=== PATIENT | male | born 1990 | race Caucasian/White ===

== ENCOUNTER 2020-05-05 01:51 | Emergency (ER) | payer OTHER ==
[~2020-05-05] VITALS: Ht 180.3 cm; Wt 102.1 kg
[~2020-05-05 01:51] MED LIST: ALBU90OI INH; CEPH500 PO; Cyclobenzaprine5 MG PO; DOXY100 PO; Flonase 0.05% N16 GM; GUAI100SY; IBUP600 PO; IBUP800 PO; Mucinex600 MG PO; Naprosyn500 MG PO; Norco 5-325 Ta1 EACH PO; PENVK500 PO; PROCODE120 PO; Prednisone20 MG PO; TRAM50 PO; Vibramycin100 MG PO; Zofran Odt4 MG SL; Zovirax400 MG PO
== END 2020-05-05 04:00 | disposition home or self-care (01) ==
LOC: ER 01:51
DX: S61.211A Laceration without foreign body of left index finger without damage to nail, initial encounter (principal); Z87.442 Personal history of urinary calculi; Z87.891 Personal history of nicotine dependence; Z23 Encounter for immunization; W26.9XXA Contact with unspecified sharp object(s), initial encounter; Y92.89 Other specified places as the place of occurrence of the external cause; Y99.0 Civilian activity done for income or pay
CPT/HCPCS: 12001; 73120; 90471; 90714; 99283-25

== ENCOUNTER 2024-03-08 08:04 | Emergency (ER) | payer OTHER ==
[~2024-03-08] VITALS: Ht 180.3 cm; Wt 115.7 kg
[2024-03-08 08:14] VITALS: BP 165/88
[2024-03-08] MEDS ORDERED: Robaxin750 MG PO (08:30)
== END 2024-03-08 08:34 | disposition home or self-care (01) ==
LOC: ER 08:04
DX: S16.1XXA Strain of muscle, fascia and tendon at neck level, initial encounter (principal); G44.309 Post-traumatic headache, unspecified, not intractable; W01.0XXA Fall on same level from slipping, tripping and stumbling without subsequent striking against object, initial encounter; I11.0 Hypertensive heart disease with heart failure; I50.9 Heart failure, unspecified; Z87.891 Personal history of nicotine dependence
CPT/HCPCS: 99283

== ENCOUNTER 2024-04-02 13:55 | Emergency (ER) | payer OTHER ==
[~2024-04-02] VITALS: Ht 180.3 cm; Wt 115.7 kg
[~2024-04-02 13:55] MED LIST changes: +Robaxin750 MG PO
[2024-04-02] MEDS ORDERED: NS 1,000 ML IV SCH (19:40)
[2024-04-02] MEDS ORDERED: Ketorolac Tromethamine 15mg Vial IV ONE (19:40)
[2024-04-02] MEDS ORDERED: Ondansetron HCl 2 MG / ML 2ML Vial IV ONE (19:40)
[2024-04-02 19:54] LABS: BASOPHILS ABSOLUTE AUTO 0.04 K/mm3 (0.00-0.23); BASOPHILS PERCENT AUTO 1 % (0-2); EOSINOPHILS ABSOLUTE AUTO 0.05 K/mm3 (0.00-0.68); EOSINOPHILS PERCENT AUTO 1 % (0-6); Hematocrit 49.3 % (37.0-53.0); Hemoglobin 16.1 g/dL (13.5-17.5); IMMATURE GRAN ABSOLUTE AUTO 0.03 K/mm3 (0.00-0.10); IMMATURE GRAN PERCENT AUTO 1 % (0-1); LYMPHOCYTES ABSOLUTE AUTO 0.96 K/mm3 (0.84-5.20); LYMPHOCYTES PERCENT AUTO 19 % (21-46); MONOCYTES ABSOLUTE AUTO 0.59 K/mm3 (0.16-1.47); MONOCYTES PERCENT AUTO 12 % (4-13); Mean Corpuscular HGB 27.1 pg (26.0-34.0); Mean Corpuscular HGB Conc 32.7 g/dL (31.5-36.5); Mean Corpuscular Volume 83 fL (80-100); Mean Platelet Volume 10.3 fL (9.1-12.4); NEUTROPHILS ABSOLUTE AUTO 3.34 K/mm3 (1.96-9.15); NEUTROPHILS PERCENT AUTO 67 % (41-73); Platelet Count 213 K/mm3 (150-400); RDW Coefficient Variation 13.3 % (11.7-14.2); RDW Standard Deviation 40.5 fL (35.1-46.3); Red Blood Cell Count 5.94 M/mm3 (4.30-5.90); White Blood Cell Count 5.01 K/mm3 (4.00-11.30)
[2024-04-02 20:06] LABS: Albumin, Blood 3.8 g/dL (3.4-5.0); Bilirubin, Total 0.4 mg/dL (0.1-1.0); Bun/Creatinine Ratio 17.3 (12.0-20.0); Creatinine, Blood 0.99 mg/dL (0.60-1.20); Globulin, Blood 3.9 g/dL (2.2-4.0); Potassium, Blood 4.2 mmol/L (3.5-5.5); Total Protein, Blood 7.7 g/dL (6.4-8.2)
[2024-04-02] MEDS ORDERED: RX Prepack 2 Tabs Ondansetron ODT 4MG UD ONE (20:25)
[2024-04-02] MEDS ORDERED: Bismuth Subsalicylate 262 MG Chew PO ONE (20:25)
[2024-04-02 21:30] VITALS: BP 153/104
== END 2024-04-02 21:42 | disposition home or self-care (01) ==
LOC: ER 13:55
PROVIDERS: Emergency Medicine
DX: R10.84 Generalized abdominal pain (principal); R11.10 Vomiting, unspecified; Z87.891 Personal history of nicotine dependence
CPT/HCPCS: 80053; 83690; 85025; 96374; 96375; 99284-25; A9270; J1885; J2405; J7030